=== PATIENT | female | born 1940 | race Caucasian/White ===

== ENCOUNTER 2019-06-04 04:41 | Inpatient (IN) | payer MEDICARE, BC ==
[~2019-06-04] VITALS: Ht 172.7 cm; Wt 81.8 kg
[2019-06-04 05:11] LABS: HEMATOCRIT 45.8 % (37.0-47.0); HEMOGLOBIN 14.9 g/dl (12.5-16.0); MEAN CELL VOLUME 86 fl (80.0-100.0); MEAN CORPUSCULAR HEMOGLOBIN 28 pg (27.0-31.0); MEAN CORPUSCULAR HGB CONC 33 g/dl (33.0-37.0); MEAN PLATELET VOLUME 10.5 fl (7.4-10.4); PLATELET COUNT 296 K/mm3 (130-400); RED BLOOD COUNT 5.35 M/mm3 (4.10-5.30); REDCELL DISTRIBUTION WIDTH-CV 14.6 % (11.5-14.5)
[2019-06-04 05:18] LABS: INR 1.2 (0.8-3.0); PROTHROMBIN TIME 14.6 SECONDS (9.7-12.8)
[2019-06-04 05:23] LABS: ALANINE AMINOTRANSFERASE < 6 U/L (9-52); ALBUMIN 4.1 gm/dL (3.5-5.0); ALKALINE PHOSPHATASE 121 U/L (50-136); ANION GAP 16 mmol/L (7-16); AST,SGOT 17 U/L (15-37); BILIRUBIN,TOTAL 1.1 mg/dL (0.0-1.0); BLOOD UREA NITROGEN 35 mg/dL (7-17); CALCIUM 9.7 mg/dL (8.4-10.2); CARBON DIOXIDE 29 mmol/L (22-30); CHLORIDE 90 mmol/L (98-107); CREATININE, serum 0.98 (0.52-1.25); GLUCOSE 167 mg/dL (74-106); LIPASE 110 U/L (23-300); POTASSIUM 3.4 mmol/L (3.4-5.0); SODIUM 135 mmol/L (137-145); TOTAL PROTEIN 7.9 gm/dL (6.4-8.2)
[2019-06-04 05:35] LABS: TROPONIN-I < 0.012 ng/mL (0.000-0.035)
[2019-06-04 05:37] LABS: BAND 44 % (0-10); LYMPHOCYTE 20 % (20.0-51.0); NEUTROPHILS 28 % (42.0-75.2)
[2019-06-04 08:05] LABS: COLLECTION METHOD CLEAN CATCH
[2019-06-04 08:22] LABS: MUCOUS Present /lpf; PH 5 (5-8); URINE APPEARANCE Clear; URINE BACTERIA None Seen /hpf; URINE BILIRUBIN Negative (NEGATIVE); URINE BLOOD Negative (NEGATIVE); URINE COLOR Yellow; URINE GLUCOSE Negative (NEGATIVE); URINE KETONE 2+ (NEGATIVE); URINE LEUKOCYTE ESTERASE Negative (NEGATIVE); URINE NITRATE Negative (NEGATIVE); URINE PROTEIN(semi-quant) 1+ (NEGATIVE); URINE UROBILINOGEN Negative (NEGATIVE)
[2019-06-04] MEDS ORDERED: XALATAN EYE DROPS OD (08:37)
[2019-06-04 13:10] VITALS: BP 113/63; PULSE 94
[2019-06-04 13:40] VITALS: BP 112/63; PULSE 94; TEMP 98.1
[2019-06-04 14:40] VITALS: BP 118/65; PULSE 94
[2019-06-04 15:40] VITALS: BP 111/68; PULSE 95
[2019-06-04 16:49] VITALS: BP 114/66; PULSE 94; TEMP 98.1
--- NOTE | 2019-06-04 20:00 | NUR ---
Report received. Assumed care for ambulatory analyst. A&Ox3-drowsy. Assessment complete. VS stable. Has tolerated a small amount of clear fluid. Lap sites m1-nabyaltg-F/D/I. IV to left forearm-NS@100ml/hr. Denies pain/shortness of breath/nausea. Plan of care discussed for this shift to include pain control. Verbalizes understanding. REBECCA drain with scant amount of serosanguineous drainage. Branch cath with dark yellow urine. Denies needs. Call light in reach/bed in low wheels locked. Will monitor.
--- NOTE | 2019-06-04 20:55 | NUR ---
C/O pain to abdomen described as a constant ache-rated 6/10 on pain scale. Also states she is nauseas. Morphine/Zofran per order. Will monitor.
[2019-06-04 21:33] VITALS: BP 136/64; PULSE 100; TEMP 97.7
[2019-06-05] VITALS (7 sets, daily range): BP systolic 128–140; BP diastolic 58–71; PULSE 83–103; TEMP 97.3–98.8
--- NOTE | 2019-06-05 04:00 | NUR ---
Called with c/o nausea. States her pain is well controlled but she feels a pressure/gas feeling. Did assist to side of bed to sit. Did stand for a few minutes but states she isnt ready to ambulate. REBECCA output for this shift 40mls. Denies needs. Will monitor.
[2019-06-05 08:04] LABS: HEMATOCRIT 39.9 % (37.0-47.0); MEAN CELL VOLUME 85 fl (80.0-100.0); MEAN CORPUSCULAR HEMOGLOBIN 28 pg (27.0-31.0); MEAN CORPUSCULAR HGB CONC 33 g/dl (33.0-37.0); MEAN PLATELET VOLUME 10.8 fl (7.4-10.4); PLATELET COUNT 272 K/mm3 (130-400); REDCELL DISTRIBUTION WIDTH-CV 14.9 % (11.5-14.5)
[2019-06-05 08:09] LABS: CALCIUM 8.3 mg/dL (8.4-10.2); CREATININE, serum 1.24 (0.52-1.25); MAGNESIUM 1.6 mg/dL (1.6-2.3); PHOSPHOROUS 3.9 mg/dL (2.5-4.5); POTASSIUM 3.6 mmol/L (3.4-5.0)
[2019-06-05 13:00] LABS: COLLECTION METHOD IN
--- NOTE | 2019-06-05 13:31 | NUR ---
plan: To return home with Crow as care support [phone]. Patient also listed her as her EMR and DPOA, although she indicated that she does not have it recorded. patient resides in [facility]. Assess: SW met with patient with her at her bedside. patient gave SW permission to discuss information in front of spouse. Patient reported that she did not utilize any DM equipment, and that her PCP is Dr. Enriquez. Patient reports that she has an upcoming appointment July 20, 2019. Patient reported that she gets her medications from [facility] in [facility] with no complications. Patient declined and [facility] at this time. Plan: Patient was educated about community resources. Possible discharge will be next week.
[2019-06-05 13:32] LABS: MUCOUS Present /lpf; PH 5 (5-8); SQUAMOUS EPITHELIAL None Seen /hpf; URINE APPEARANCE Hazy; URINE BACTERIA Rare /hpf; URINE BILIRUBIN Negative (NEGATIVE); URINE BLOOD 1+ (NEGATIVE); URINE COLOR Yellow; URINE GLUCOSE Negative (NEGATIVE); URINE KETONE Trace (NEGATIVE); URINE LEUKOCYTE ESTERASE Negative (NEGATIVE); URINE NITRATE Negative (NEGATIVE); URINE PROTEIN(semi-quant) 1+ (NEGATIVE); URINE UROBILINOGEN Negative (NEGATIVE)
[2019-06-05 15:06] LABS: HEMOGLOBIN 12.2 g/dl (12.5-16.0); MEAN CELL VOLUME 84 fl (80.0-100.0); MEAN CORPUSCULAR HEMOGLOBIN 28 pg (27.0-31.0); MEAN CORPUSCULAR HGB CONC 33 g/dl (33.0-37.0); MEAN PLATELET VOLUME 10.2 fl (7.4-10.4); PLATELET COUNT 236 K/mm3 (130-400); RED BLOOD COUNT 4.37 M/mm3 (4.10-5.30); REDCELL DISTRIBUTION WIDTH-CV 14.9 % (11.5-14.5)
[2019-06-05 15:09] LABS: HEMATOCRIT 36.6 % (37.0-47.0)
[2019-06-05 15:23] LABS: ALBUMIN 2.8 gm/dL (3.5-5.0); BILIRUBIN,TOTAL 0.6 mg/dL (0.0-1.0); CALCIUM 8.1 mg/dL (8.4-10.2); CREATININE, serum 1.19 (0.52-1.25); POTASSIUM 3.5 mmol/L (3.4-5.0); TOTAL PROTEIN 5.8 gm/dL (6.4-8.2)
--- NOTE | 2019-06-05 18:00 | NUR ---
Taking clear liquids slowly. No c/o nausea. Sat at side of bed several times, but stated did not feel ready to ambulate yet. Pain relieved with prn pain meds. Small amount serosanguinous drainage from REBECCA drain. IV fluids infusing. Afebrile. Lab results called to physician.
--- NOTE | 2019-06-05 20:53 | NUR ---
Pt doing well, resting in bed with son in room. Alert and oriented with VSS. Pt had lap lavage for diverticulitis. Abd lap sites x3 all CD&I. REBECCA drain to L side of abdomen, also CD&I. Minimal light yellow drainage. Pt denies pain at this time, states she is comfortable. Pt denies needs, call light within reach, will continue to monitor
--- NOTE | 2019-06-05 22:30 | NUR ---
Pt son comes out and reports pt is having some confusion. pt does not know what year it is or who is president. pt reoriented with this. pt does recall what happened before she came to hospital and that she had surgery. vital signs are stable. almost as if patient was dreaming and it affected memory short term. pt seems to be better now and recognized and son. will continue to monitor
[2019-06-06 04:09] VITALS: BP 138/61; PULSE 80; TEMP 98.7
--- NOTE | 2019-06-06 04:35 | NUR ---
Pt slept well rest of night, had no more episodes of confusion.
[2019-06-06 08:35] LABS: ALBUMIN 2.6 gm/dL (3.5-5.0); BILIRUBIN,TOTAL 0.5 mg/dL (0.0-1.0); CREATININE, serum 0.83 (0.52-1.25); POTASSIUM 3.6 mmol/L (3.4-5.0); TOTAL PROTEIN 5.5 gm/dL (6.4-8.2)
[2019-06-06 09:01] VITALS: BP 140/59; PULSE 78; TEMP 97.8
[2019-06-06 09:16] LABS: HEMOGLOBIN 10.9 g/dl (12.5-16.0); MEAN CELL VOLUME 85 fl (80.0-100.0); MEAN CORPUSCULAR HEMOGLOBIN 28 pg (27.0-31.0); MEAN CORPUSCULAR HGB CONC 33 g/dl (33.0-37.0); MEAN PLATELET VOLUME 10.4 fl (7.4-10.4); PLATELET COUNT 229 K/mm3 (130-400); RED BLOOD COUNT 3.93 M/mm3 (4.10-5.30)
[2019-06-06 09:21] LABS: HEMATOCRIT 33.5 % (37.0-47.0)
[2019-06-06 10:18] LABS: BAND 39 % (0-10); LYMPHOCYTE 6 % (20.0-51.0); NEUTROPHILS 51 % (42.0-75.2); PLATELET ESTIMATE NORMAL (NORMAL)
[2019-06-06 12:05] VITALS: BP 154/67; PULSE 73; TEMP 98.1
[2019-06-06 17:56] VITALS: BP 131/62; PULSE 67; TEMP 98.2
--- NOTE | 2019-06-06 18:30 | NUR ---
Alert. Afebrile. Incisional pain and nausea relieved with prn meds. Taking clear liquids slowly. Not passing flatus yet. Minimal output from REBECCA drain. Dangled and stood with assistance. Family at bedside.
[2019-06-06 20:02] VITALS: BP 124/56; PULSE 72; TEMP 98.7
--- NOTE | 2019-06-06 22:49 | NUR ---
Pt doing well. Alert and oriented with VSS. Resting in bed with son in room. Abd lap sites x3 CD&I with bandaid. IV to R forearm NS running. Pt denies needs at this time, call light within reach, will continue to monitor
[2019-06-06 23:26] VITALS: BP 141/66; PULSE 69; TEMP 98.1
[2019-06-07 03:39] VITALS: BP 134/61; PULSE 65; TEMP 97.9
--- NOTE | 2019-06-07 06:37 | NUR ---
PT has done well throughout the night. Has slept most of night with in room. x1 assist to bathroom. Zosyn running to IV in right forearm. Pt given prn norco per request. Pt denies needs at this time. Call light within reach, will continue to monitor
[2019-06-07 06:46] LABS: HEMOGLOBIN 10.9 g/dl (12.5-16.0); MEAN CELL VOLUME 86 fl (80.0-100.0); MEAN CORPUSCULAR HEMOGLOBIN 28 pg (27.0-31.0); MEAN CORPUSCULAR HGB CONC 32 g/dl (33.0-37.0); MEAN PLATELET VOLUME 10.2 fl (7.4-10.4); PLATELET COUNT 195 K/mm3 (130-400); RED BLOOD COUNT 3.94 M/mm3 (4.10-5.30); REDCELL DISTRIBUTION WIDTH-CV 15.2 % (11.5-14.5)
[2019-06-07 06:49] LABS: HEMATOCRIT 33.9 % (37.0-47.0)
[2019-06-07 06:58] LABS: ALBUMIN 2.6 gm/dL (3.5-5.0); BILIRUBIN,TOTAL 0.8 mg/dL (0.0-1.0); CREATININE, serum 0.61 (0.52-1.25); POTASSIUM 3.8 mmol/L (3.4-5.0); TOTAL PROTEIN 5.6 gm/dL (6.4-8.2)
[2019-06-07 07:56] LABS: ANISOCYTOSIS 1+; BAND 3 % (0-10); LYMPHOCYTE 13 % (20.0-51.0); NEUTROPHILS 82 % (42.0-75.2); PLATELET ESTIMATE NORMAL (NORMAL)
[2019-06-07 08:15] VITALS: BP 138/59; PULSE 71; TEMP 98.6
--- NOTE | 2019-06-07 08:45 | NUR ---
PATIENT SOUND ASLEEP, DID NOT WAKE WHEN NURSING ENTERED ROOM. CALL LIGHT IN REACH.
[2019-06-07 12:03] VITALS: BP 138/64; PULSE 72; TEMP 98
--- NOTE | 2019-06-07 13:06 | NUR ---
Pt slept throughout the morning. [place] was given for pain at 0816. Pt ambulated to bathroom and seems to have more strength compared to yesterday. Son at bedside.
--- NOTE | 2019-06-07 15:14 | NUR ---
Pt five page assessment done. Pt ambulated down the hallway well. Pt was given a bed bath and linens were changed at this time. Pt did have complaints of pain once she returned to her room. Pt was given pain medication at this time. Pt tolereated clear liquid diet well for lunch. Pt diet was changed and she tolerated pudding well. Pt was given chapstick for her dry lips and Desenex 2% Powder is currently was offered to patient she stated she would wait until a while and then we could help her apply. Pt family currently in the room at her bedside. Pt has no complaints at this time she is resting in bed. Bed is in lowest postion, call light within reach.
[2019-06-07 16:16] VITALS: BP 133/67; PULSE 64; TEMP 97.6
--- NOTE | 2019-06-07 17:24 | NUR ---
Pt currenty sitting up eating her low fiber meal tray. Ensure shake provided ecouraged pt to take slow. Pt was able to take a nap this afternoon.
[2019-06-07 19:50] VITALS: BP 130/59; PULSE 65; TEMP 98.1
--- NOTE | 2019-06-07 20:34 | NUR ---
PATIENT ASSISTED TO BATHROOM, VOIDS WITHOUT PROBLEM. EMPTIED 10CC FROM REBECCA DRAIN, SEROUS FLUID. HAS BANDAIDS TO ABDOMEN. REPORTS PAIN TO ABDOMEN 5/10, MEDICATED WITH NORCO AT THIS TIME. BACK TO BED. DESENEX POWDER APPLIED BENEATH BREASTS, NOTED SPLIT IN SKIN BENEATH BREASTS. IVF TO RIGHT FOREARM WITHOUT REDNESS OR SWELLING. SON AT BEDSIDE.
--- NOTE | 2019-06-07 23:27 | NUR ---
Patient complains of rt shoulder pain, warm blanket applied.
[2019-06-07 23:46] VITALS: BP 140/58; PULSE 70; TEMP 97.8
--- NOTE | 2019-06-08 00:06 | NUR ---
Reports pain 6/10 to rt shoulder and abdomen. Medicated with [place] 1 tab and IV Morphine at this time.
--- NOTE | 2019-06-08 01:35 | NUR ---
Assisted to bathroom, voids and back to bed. Reports less pain after meds were given.
[2019-06-08 03:50] VITALS: BP 139/55; PULSE 72; TEMP 97.8
--- NOTE | 2019-06-08 07:21 | NUR ---
Sitting up in bed eating breakfast. Lap sites x3 to abd with bandaid x2 and dressing CDI. REBECCA compressed with scant amount of serous fluid in bulb. Patient denies passing flatus at this time. Patient in agreeance in getting out of bed more today and walking in halls. Rates pain 4-5/10, in abd, and describes the pain as sharp with movement and deep pain with deep breathing. Requests pain medication. Administered [place] as prescribed at this time.
[2019-06-08 07:58] VITALS: BP 147/67; PULSE 76; TEMP 98.3
--- NOTE | 2019-06-08 08:40 | NUR ---
IV fluids discontinued at this time. Site INT'd. Discussed with the patient removing REBECCA drain and the procedure. Dressing removed from REBECCA site and bandaids also removed from two lap sites. Area around REBECCA drain insertion site cleaned with alcohol. Suture removed. Drain pulled, all intact. Applied 2x2s to site. Reinforced with tegaderm. Patient tolerates with little difficulty. Patient would like to rest for a little bit then will get up to ambulate. Denies further needs at this time.
--- NOTE | 2019-06-08 09:40 | NUR ---
Patient ambulating in halls with physical therapy at this time. Gait slow but steady. Using walker.
--- NOTE | 2019-06-08 09:53 | NUR ---
Offered shower or bed bath at this time and the patient declines. Cleansed under bilat breasts, dried, then applied Desenex powder. Patient says that she would like to rest at this time. Denies further needs.
[2019-06-08 12:06] VITALS: BP 150/62; PULSE 72; TEMP 98.3
--- NOTE | 2019-06-08 12:31 | NUR ---
Unable to flush IV in right forearm. Site dc'd with catheter intact. Applied 2x2 to site and reinforced with tape. #20 gauge IV started in the left forearm x1 stick by this nurse. Blood return received and site flushes without difficulty. Reinforced with tegaderm and tape. Patient tolerates without difficulty.
--- NOTE | 2019-06-08 13:03 | NUR ---
Patient rating pain 4/10 in abd. Says that she knows PT will be coming back to work with her this afternoon and requests to take pain medication at this time. [place] administered as prescribed. Patient says that she has been passing gas. Family in room. Denies further needs at this time.
--- NOTE | 2019-06-08 13:47 | NUR ---
Ambulating in halls with PT. Using walker. Gait slow and steady.
--- NOTE | 2019-06-08 14:04 | NUR ---
MINDI met with the patient and her to follow up and to review discharge plan. The patient is hopeful to start feeling better soon and return back home with her . They had no other questions or concerns for SW. No additional needs at this time.
[2019-06-08 16:46] VITALS: BP 146/60; PULSE 70; TEMP 97.8
[2019-06-08 20:00] VITALS: BP 147/59; PULSE 78; TEMP 98.4
[2019-06-09] VITALS (9 sets, daily range): BP systolic 147–169; BP diastolic 59–73; PULSE 73–92; TEMP 97.2–99
--- NOTE | 2019-06-09 05:55 | NUR ---
Patient blood pressure 168/68 Dr. Acosta notified, no new orders. Address during rounds.
[2019-06-09 06:58] LABS: HEMOGLOBIN 10.7 g/dl (12.5-16.0); MEAN CELL VOLUME 87 fl (80.0-100.0); MEAN CORPUSCULAR HEMOGLOBIN 28 pg (27.0-31.0); MEAN CORPUSCULAR HGB CONC 32 g/dl (33.0-37.0); MEAN PLATELET VOLUME 10.1 fl (7.4-10.4); PLATELET COUNT 218 K/mm3 (130-400); RED BLOOD COUNT 3.87 M/mm3 (4.10-5.30); REDCELL DISTRIBUTION WIDTH-CV 15.2 % (11.5-14.5)
[2019-06-09 07:11] LABS: HEMATOCRIT 33.5 % (37.0-47.0)
[2019-06-09 07:15] LABS: CALCIUM 7.9 mg/dL (8.4-10.2); CREATININE, serum 0.46 (0.52-1.25); POTASSIUM 3.6 mmol/L (3.4-5.0)
--- NOTE | 2019-06-09 07:30 | NUR ---
Assessment completed VSS nurse notified eleveate Blood Pressure 169/66. Pt siting up in bed tolerating low fiber breakfast. INT Left hand no redness or swelling. Breath sound WNL, Dressing to LLQ abdomen covered 2x2 no bleeding.
--- NOTE | 2019-06-09 10:46 | NUR ---
Pt currently sitting up in bed. diesel service technician stated that pt tolerated breakfast well. Pt had no complaints of pain at this time. Encouraged pt to ambulate as well as try to take a shower.Pt stated she was able to pass gas, no BM. Dr. Nguyen has rounded. Pt son is currently at bedside. Bed is in lowest positon and call light within reach.
--- NOTE | 2019-06-09 11:06 | NUR ---
Pt resting, VSS Pt son is at bedside. No pain noted at this time.
--- NOTE | 2019-06-09 15:36 | NUR ---
Pt was up out of bed and assisted her to the bathroom. She was able to have a large BM. Assested pt with shower and clean linen on bed. Pt ambulated with physical therapy pass the nutrition room. Pt is currently sleeping in bed with at bedside.
--- NOTE | 2019-06-09 20:38 | NUR ---
Pt doing well. alert and oriented with vss. int to right hand. on abx. ambulated in hallway about 150ft. pt denies needs at this time. call light within reach, will continue to monitor
[2019-06-10 04:01] VITALS: BP 163/70; PULSE 80; TEMP 98.8
--- NOTE | 2019-06-10 06:20 | NUR ---
pt doing well, walked a few times last night. still getting norco prn for abdominal pain. denies needs at this time. call light within reach, will continue to monitor
[2019-06-10 08:00] VITALS: BP 170/69; PULSE 84; TEMP 98.4
--- NOTE | 2019-06-10 08:56 | NUR ---
[facility] student Aleksandr caring for patient this morning. Student alerted this nurse that Pt BP elevated, not significant from previous BPs. Pt rating pain at 7/10 to abdomen, received [place] this morning at 0500, student administered tylenol PRN. Pt now sleeping comfortably in bed, will reassess pain and BP once awake.
[2019-06-10 12:52] VITALS: BP 146/63; PULSE 73; TEMP 97.8
--- NOTE | 2019-06-10 13:47 | NUR ---
Pt walked to end of tovar with assitance, tolerated well. States she would like to rest for a while, states he will walk with her again after rest, call light within reach, reported off to DOUGLAS Winston
[2019-06-10 15:50] VITALS: BP 158/69; PULSE 80; TEMP 98.1
--- NOTE | 2019-06-10 17:10 | NUR ---
Pt requested pain medication, rating abdominal pain 5/10 to rt sd. Pt has been up ambulating in halls 3 times so far today w/ therapy and . Pt tolerating ok. Pt received PRN [place] per JUN. Dinner served, per and pt, eating ok. Pt denies other needs at this time.
[2019-06-10 19:34] VITALS: BP 148/63; PULSE 69; TEMP 97.7
--- NOTE | 2019-06-10 20:00 | NUR ---
Report received. Assumed care for fairing man. Assessment complete. VS stable. A&Ox3. Family at bedside. Denies pain/nausea/shortness of breath. INT to left FA fulshes without difficulty. Tolerating PO. +flatus/+BM. Voiding without difficulty. Lap sites x3-edges well approximated. REBECCA drain site dressing-CDI/gauze/tegaderm. Has ambulated in the hallway approx 1000 feet. Denies questions or concerns. Call light in reach. Will monitor.
[2019-06-11] VITALS (7 sets, daily range): BP systolic 138–171; BP diastolic 54–72; PULSE 68–85; TEMP 97.8–98.4
--- NOTE | 2019-06-11 04:30 | NUR ---
Rested well beginning of shift. Called with c/o pain-rated 6/10 right quadrant-described as sharp/throbbing pain. Hydrocodone given per dr order. Ambulated well with walker last night. Son stated it was the longest walk since surgery, approx 1000ft. Tolerating diet. +flatus. +BMx2 this shift. Encouraged to call for questions/concerns. Verbalizes understanding. Will monitor.
--- NOTE | 2019-06-11 08:00 | NUR ---
Patient resting in bed at this time. Patient is alert and oriented, answers questions appropriately. Patient's at bedside. Patient reports pain at 6/10, requests pain medication. Student nurse and instructer administered pain medication. 3 lap sites and REBECCA drain site are well approximated with no drainage. Patient denies further needs, call light within reach.
--- NOTE | 2019-06-11 15:38 | NUR ---
The patient is to tentatively discharge back home with her tomorrow, 06/12. SW met with the patient and her to review discharge plan and to present and review the IM form. The patient plans to return home with her and had no questions for SW at this time. SW presented and reviewed the IM form. The patient verbalized understanding, signed, and she was provided a copy. No additional needs at this time.
--- NOTE | 2019-06-11 21:31 | NUR ---
Pt. sitting up in bed with at bedside. Pt. is A&OX3, assessment complete. INT to lt. forearm patent. Abd. incisions CDI. Pt. reports pain at a 5 on pain scale, gave pain meds per orders. Pt. denies further needs, call light within reach.
[2019-06-12 05:38] VITALS: BP 159/68; PULSE 79; TEMP 98.4
--- NOTE | 2019-06-12 08:00 | NUR ---
Patient resting in bed eating breakfast at this time. Patient is alert and oriented, answers questions appropriately. Patient requests PRN pain medication, informed patient that it was too soon, instructed patient to call for it in 1.5 hours if still needed. Patient verbalized understanding and denies further needs. Call light within reach.
[2019-06-12 08:17] VITALS: BP 155/56; PULSE 81; TEMP 97.9
[2019-06-12 09:03] LABS: MEAN CELL VOLUME 89 fl (80.0-100.0); MEAN CORPUSCULAR HGB CONC 31 g/dl (33.0-37.0); MEAN PLATELET VOLUME 10.3 fl (7.4-10.4); PLATELET COUNT 358 K/mm3 (130-400); REDCELL DISTRIBUTION WIDTH-CV 15.3 % (11.5-14.5)
[2019-06-12 09:07] LABS: HEMATOCRIT 31.1 % (37.0-47.0); HEMOGLOBIN 9.6 g/dl (12.5-16.0); MEAN CORPUSCULAR HEMOGLOBIN 27 pg (27.0-31.0)
[2019-06-12] MEDS ORDERED: AMOXICILLIN 8751 TAB PO (09:16)
[2019-06-12] MEDS ORDERED: NORCO 325 MG-51 TAB PO (09:16)
[2019-06-12 09:18] LABS: CALCIUM 7.9 mg/dL (8.4-10.2); CREATININE, serum 0.42 (0.52-1.25); POTASSIUM 3.4 mmol/L (3.4-5.0)
[2019-06-12 12:02] VITALS: BP 151/62; PULSE 74; TEMP 97.5
--- NOTE | 2019-06-12 12:37 | NUR ---
Discharge teaching completed. Discussed discharge prescriptions, follow up appointments, care of incisions, bathing and activity restrictions. Patient verbalized understanding. Patient requested PRN pain medication, administered per order. Patient states that she will take a nap before she leaves, and will inform staff when she is ready to leave. Denies further needs at this time, call light within reach.
--- NOTE | 2019-06-12 14:00 | NUR ---
Patient called and reports that she is ready to leave. INT removed, catheter intact, hemostasis achieved. Patient dressed and confirms that belongings are gathered. Patient escorted to ED entrance via wheelchair by surgical staff where she entered a private vehicle.
== END 2019-06-12 14:00 | disposition home or self-care (01) | DRG 345 ==
LOC: COL.ER 04:41 → SURG 06:57
PROVIDERS: Emergency Medicine; Surgery; ADMIT Surgery
PROC: 0W9F30Z Drainage of Abdominal Wall with Drainage Device, Percutaneous Approach (ICD-10-PCS; 2019-06-04)
PROC: 0DJD4ZZ Inspection of Lower Intestinal Tract, Percutaneous Endoscopic Approach (ICD-10-PCS; principal; 2019-06-04 09:30)
DX: K57.20 Diverticulitis of large intestine with perforation and abscess without bleeding (principal); R65.10 Systemic inflammatory response syndrome (SIRS) of non-infectious origin without acute organ dysfunction; K56.7 Ileus, unspecified; H40.9 Unspecified glaucoma; R06.6 Hiccough
CPT/HCPCS: A4314; A9284; C9113; J0692; J1100; J1650; J1885; J2270; J2405; J2543; J2704; J3010; J7030; J7120; Q9967

== ENCOUNTER 2023-10-26 12:13 | Inpatient (IN) | payer MEDICARE, BC ==
[~2023-10-26] VITALS: Ht 167.6 cm; Wt 79.0 kg
[~2023-10-26 12:13] MED LIST: AMOXICILLIN 8751 TAB PO; ASPI325T6 PO; CALTRATE-600 W600 MG PO; DOXYCYCLINE 10100 MG PO; LEVAQUIN 5500 MG/TA1 PO; MELATIN 3 MG-11 TAB PO; MULTI VITAMINS1 TAB PO; NORCO 325 MG-51 TAB PO; PRILOSEC 20MG20 MG PO; PRINIVIL10 MG PO; ROXICODONE 55 MG/TAB PO; TYLENOL 500MG500 MG PO; VITAMIN C500 MG PO; XALATAN EYE DROPS OD; XALATAN EYE DROPS OU
[2023-10-26 12:55] LABS: BASO # 0.1 K/mm3 (0.0-0.2); BASO % 0.6 % (0.0-2.0); EOS # 0.2 K/mm3 (0.0-0.7); EOS % 2.3 % (0.0-4.0); GRAN % 74.7 % (42.2-75.2); HEMOGLOBIN 11.6 g/dl (12.5-16.0); LYMPH % 11.1 % (20.0-51.0); MEAN CELL VOLUME 88 fl (80.0-100.0); MEAN CORPUSCULAR HEMOGLOBIN 28 pg (27-31); MEAN CORPUSCULAR HGB CONC 32 g/dl (33.0-37.0); MEAN PLATELET VOLUME 10.6 fl (7.4-10.4); MONO % 10.7 % (1.7-9.3); PLATELET COUNT 191 K/mm3 (130-400); RED BLOOD COUNT 4.18 M/mm3 (4.10-5.30); REDCELL DISTRIBUTION WIDTH-CV 14.9 % (11.5-14.5)
[2023-10-26 12:56] LABS: COLLECTION METHOD IN
[2023-10-26 12:57] LABS: HEMATOCRIT 36.6 % (37.0-47.0)
[2023-10-26 13:00] VITALS: BP_SYST 118
[2023-10-26] MEDS ORDERED: NS 500 ML IV ONE (13:00)
[2023-10-26 13:15] LABS: ALBUMIN 3.3 g/dL (3.4-4.8); BILIRUBIN,TOTAL 0.5 mg/dL (0.2-1.2); CALCIUM 9.1 mg/dL (8.4-10.2); CREATININE, serum 0.9 mg/dL (0.57-1.11); POTASSIUM 4.2 mEq/L (3.5-4.5); TOTAL PROTEIN 6.9 g/dl (6.2-8.1)
[2023-10-26 13:18] LABS: URINE APPEARANCE CLEAR (CLEAR/HAZY); URINE BLOOD TRACE (NEGATIVE); URINE COLOR YELLOW (YELLOW); URINE GLUCOSE NEGATIVE (NEGATIVE); URINE KETONE NEGATIVE (NEGATIVE); URINE NITRATE POSITIVE (NEGATIVE); URINE PROTEIN(semi-quant) NEGATIVE (NEGATIVE); URINE UROBILINOGEN 0.2 E.U/dL (0.2-1.0)
[2023-10-26] MEDS ORDERED: cefTRIAXone 1 G in Water For Injection,Sterile 10 ML IV ONE (13:45)
[2023-10-26] MEDS ORDERED: Doxycycline Monohydrate 100 MG CAP PO SCH (14:39)
[2023-10-26] MEDS ORDERED: Melatonin 3 MG TAB PO PRN (14:45)
[2023-10-26] MEDS ORDERED: Acetaminophen 500 MG TAB PO SCH (14:45)
[2023-10-26] MEDS ORDERED: oxyCODONE 5 MG TAB PO PRN (14:45)
[2023-10-26] MEDS ORDERED: Ondansetron 4 MG/2 ML VIAL IV PRN (14:45)
[2023-10-26] MEDS ORDERED: D5 1/2 NS 1,000 ML IV SCH (14:45)
[2023-10-26] MEDS ORDERED: cefTRIAXone 1 G in Water For Injection,Sterile 10 ML IV SCH (14:45)
[2023-10-26] MEDS ORDERED: Morphine 4 MG/ML VIAL IV PRN (14:45)
--- NOTE | 2023-10-26 14:45 | NUR ---
pt admitted to room from ED, slideboard used to transfer pt. at bedside. pt reports pain a 4/10 in her right hip. scds and teds in place. ice to right hip. leonard to dd w cloudy yellow urine output. pt on 2L nasal cannula. vss. 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 IV to left ac with fluids running. med rec and admission assessment complete. pt denies needs at this time. call light in reach.
[2023-10-26 15:20] VITALS: BP_SYST 118
[2023-10-26 15:23] VITALS: BP 131/75; PULSE 75; TEMP 98
[2023-10-26 19:30] VITALS: BP 137/70; PULSE 76; TEMP 97.6
[2023-10-26 19:40] VITALS: BP_SYST 137
[2023-10-26] MEDS ORDERED: Latanoprost 0.005% Ophth Soln 2.5 ML BOTTLE OP SCH (21:00)
--- NOTE | 2023-10-26 21:46 | NUR ---
Patient assessed around 194. Alert and oriented, and able to make needs known. Denied having pain and discomfort at that time. IV to left AC with IV fluids running per orders. Patient was on oxygen at 3 L/min via NC. SPO2 97%. Decreased to 2 L/min via NC. Denies SOB and dypsnea. LS CTA. HRR. Telemetry in place. BSAx4. Colostomy to LLE emptied, small amount of brown, soft formed stool. Indwelling leonard catheter with clear yellow urine. Patient is on bedrest for right hip fracture. Voices no questions, needs, or concerns at this time. Aware of plan to get cardiac clearance for surgery tomorrow. In bed with call light within reach. High fall risk precautions in place. Bed alarm on.
[2023-10-27] VITALS (19 sets, daily range): BP systolic 124–147; BP diastolic 48–76; PULSE 55–75; TEMP 97.3–100
--- NOTE | 2023-10-27 05:00 | NUR ---
Patient given scheduled Acetaminophen, and given PRN Roxicodone once this shift as requested for pain to right hip. Remains on bedrest. Patient has indwelling leonard catheter, draining clear yellow urine. IV fluids continue per orders. Voices no questions, needs, or concerns at this time. In bed with call light within reach. High fall risk precautions in place. Has been NPO since midnight.
--- NOTE | 2023-10-27 05:04 | NUR ---
Oxygen weaned down to 1 L/min via NC during the night.
[2023-10-27 05:39] LABS: INR 1.3 (0.8-3.0); PROTHROMBIN TIME 13.8 SECONDS (9.7-12.8)
--- NOTE | 2023-10-27 08:00 | NUR ---
pt a&oX4 resting comfortably in bed. pt reports pain a 2/10 in right hip. scds and teds in place. leonard to dd w cloudy yellow urine output. colostomy remains in place w good output. pt on 1L nasal cannula. vss and tele in place. pt npo for surgery today. fluids infusing into left ac IV. pt denies needs at this time. fall precautions in place. call light in reach.
[2023-10-27] MEDS ORDERED: Ascorbic Acid 500 MG TAB PO SCH (09:00)
[2023-10-27] MEDS ORDERED: cefTRIAXone 1 G in Water For Injection,Sterile 10 ML IV SCH (09:00)
[2023-10-27] MEDS ORDERED: Calcium Carb/Vit D3 500 mg-200 Units TAB PO SCH (09:00)
[2023-10-27] MEDS ORDERED: ASPIRIN 32325 MG/TAB PO (09:47)
--- NOTE | 2023-10-27 09:47 | NUR ---
Electrical Products Sales Engineer attempted to meet with patient to complete initial intake. Patient stated she is feeling tired and thirsty. Patient requested SW to come back later as she wants to rest right now. Patient told MINDI she could call her , Crow. MINDI contacted Crow (ph#[phone]) to discuss discharge planning. Patient and Crow live in [place] and patient recently switched primary care providers to Dr. Fan. Patient was seeing Dr. Mone Enriquez until she left her practice. Patient gets her medications from [facility] with no difficulties at this time. Patient has mostly been using a cane for ambulation and is independent with ADLS. Patient was raking leaves when she fell, resulting in a fracture. Patient has DPOA-HC in EMR designating her , Billy "Crow" Warren. MINDI advised Crow that patient will likely need post acute rehab. Crow advised patient went to [facility] previously and that would be their preference if rehab is needed. MINDI contacted Karmen, [facility] Director to give referral. Discharge Plan: [facility] Screen
[2023-10-27] MEDS ORDERED: Multivitamin TAB PO SCH (12:00)
--- NOTE | 2023-10-27 13:39 | NUR ---
pt off floor for procedure
[2023-10-27] MEDS ORDERED: dexAMETHasone 10 MG/ML VIAL ONE (13:43)
[2023-10-27] MEDS ORDERED: Ondansetron 4 MG/2 ML VIAL ONE (13:43)
[2023-10-27] MEDS ORDERED: NS 10 ML IV ONE (13:43)
[2023-10-27] MEDS ORDERED: Tranexamic Acid 1,000 MG/10 ML VIAL ONE (13:44)
[2023-10-27] MEDS ORDERED: ePHEDrine 50 MG/ML VIAL ONE (14:37)
[2023-10-27] MEDS ORDERED: Meperidine 50 MG/ML 1 ML VIAL IV PRN (15:00)
[2023-10-27] MEDS ORDERED: droPERidol 2.5 MG/ML 2 ML VIAL IV PRN (15:00)
[2023-10-27] MEDS ORDERED: HYDROmorphone 1 MG/1 ML SYRINGE [PACU/SDC ONLY] IV PRN ×2 (15:00)
[2023-10-27] MEDS ORDERED: fentaNYL 50 MCG/ML 1 ML SYRINGE/VIAL [PACU/SDC ONLY] IV PRN (15:00)
[2023-10-27] MEDS ORDERED: hydrALAZINE 20 MG/ML 1 ML VIAL IV PRN (15:00)
[2023-10-27] MEDS ORDERED: Ondansetron 4 MG/2 ML VIAL IV PRN (15:00)
[2023-10-27] MEDS ORDERED: Topical Skin Adhesive 1 EACH (1 ML) TOP ONE (15:17)
[2023-10-27] MEDS ORDERED: Promethazine 50 MG/ML 1 ML VIAL IM PRN (15:30)
[2023-10-27] MEDS ORDERED: Naloxone 0.4 MG/ML VIAL IV PRN (15:30)
[2023-10-27] MEDS ORDERED: Promethazine 25 MG TAB PO PRN (15:30)
[2023-10-27] MEDS ORDERED: dexAMETHasone 10 MG/ML VIAL IV SCH (16:00)
--- NOTE | 2023-10-27 16:25 | NUR ---
pt back in room from procedure, at bedside. pt rates pain a 3/10. dressing to right hip is cdi. call light in reach.
--- NOTE | 2023-10-27 21:23 | NUR ---
Patient assessed around 1999. Alert and oriented, and able to make needs known. Reports pain at a 5 to right hip. Given scheduled Acetaminophen. Peripheral IV to left AC with IV fluids running per orders. Denies SOB and dyspnea. LS CTA. On oxygen at 1 L/min via NC. HRR. BSAx4. Colostomy in place to LLQ. Indwelling leonard catheter draining clear yellow urine via dependent drainage. Dressing to right hip is CDI. Ice to site. Voices no questions, needs, or concerns at this time. In bed with call light within reach. High fall risk precautions in place. Bed alarm on.
[2023-10-28] VITALS (7 sets, daily range): BP systolic 119–140; BP diastolic 59–71; PULSE 58–68; TEMP 97.7–98
[2023-10-28] MEDS ORDERED: ceFAZolin 1 G in Water For Injection,Sterile 10 ML IV SCH (01:30)
--- NOTE | 2023-10-28 05:52 | NUR ---
Patient received scheduled Acetaminophen, as well as PRN Roxicodone for pain to right hip as requested. Ice to site. Voices no further questions, needs, or concerns at this time. In bed with call light within reach. High fall risk precautions in place. Bed alarm on.
[2023-10-28 06:41] LABS: HEMOGLOBIN 10.3 g/dl (12.5-16.0)
[2023-10-28 06:48] LABS: HEMATOCRIT 32.3 % (37.0-47.0)
--- NOTE | 2023-10-28 08:35 | NUR ---
pt a&ox4 resting in bed waiting for breakfast. vss. pt denies pain. right hip dressing is cdi, bulky dressing changed to an aquacell. teds and scds to ble. leonard to dd w clear yellow urine output. therapy in to work with patient. pt denies needs at this time. call light in reach. fall precautions in place.
--- NOTE | 2023-10-28 11:10 | NUR ---
line out worker was notified patient was accepted with [facility] and could transfer today. MINDI notified DENA Contreras, whom expressed she and Dr. Cintron would meet with her shortly to ensure she was medically ready for [facility]. MINDI met with patient whom confirmed she would like to go to [facility] when Dr. Cintron medically clears her. MINDI notified patient's nurse and community sports coordinator. MINDI Alfonso called patient's , Crow, whom expressed he was okay with patient transferring to [facility] when medically ready. Discharge plan: [facility]
[2023-10-28] MEDS ORDERED: ASPI325T6 PO (11:54)
[2023-10-28] MEDS ORDERED: ROXICODONE 55 MG/TAB PO (11:55)
[2023-10-28] MEDS ORDERED: TYLENOL 500MG500 MG PO (11:56)
[2023-10-28] MEDS ORDERED: DOXYCYCLINE 10100 MG PO (11:59)
[2023-10-28] MEDS ORDERED: ROCEPHIN VIA1 G/VIAL IV (11:59)
[2023-10-28 12:08] LABS: COLLECTION METHOD CLEAN CATCH
[2023-10-28 12:25] LABS: PH 5.5 (5.0-8.5); URINE APPEARANCE CLEAR (CLEAR/HAZY); URINE BLOOD NEGATIVE (NEGATIVE); URINE COLOR YELLOW (YELLOW); URINE GLUCOSE NEGATIVE (NEGATIVE); URINE KETONE NEGATIVE (NEGATIVE); URINE NITRATE NEGATIVE (NEGATIVE); URINE PROTEIN(semi-quant) NEGATIVE (NEGATIVE); URINE UROBILINOGEN 0.2 E.U/dL (0.2-1.0)
--- NOTE | 2023-10-28 13:50 | NUR ---
physical therapy in with pt, help assist patient over to rehab room. pt tolerated well. reports increased pain at a 4. at bedside with patient.
== END 2023-10-28 15:04 | DRG 522 ==
LOC: COL.ER 12:13 → SURG 14:01
PROVIDERS: Emergency Medicine; Orthopaedic Surgery; Physician Assistant; ADMIT Internal Medicine
PROC: 0SR90JZ Replacement of Right Hip Joint with Synthetic Substitute, Open Approach (ICD-10-PCS; principal; 2023-10-27 14:30)
DX: S72.001A Fracture of unspecified part of neck of right femur, initial encounter for closed fracture (principal); N39.0 Urinary tract infection, site not specified; R09.02 Hypoxemia; Z96.642 Presence of left artificial hip joint; H40.9 Unspecified glaucoma; D64.9 Anemia, unspecified; W01.0XXA Fall on same level from slipping, tripping and stumbling without subsequent striking against object, initial encounter; I10 Essential (primary) hypertension; Z79.899 Other long term (current) drug therapy; Y93.89 Activity, other specified; Y92.89 Other specified places as the place of occurrence of the external cause; Z23 Encounter for immunization
CPT/HCPCS: A6197; A9284; C1713; C1776; J0690; J0696; J1100; J2270; J2405; J2704; J3010; J7040

== ENCOUNTER 2023-10-28 13:41 | Inpatient (IN) | payer MEDICARE, BC ==
[~2023-10-28] VITALS: Ht 167.6 cm; Wt 96.4 kg
[2023-10-28 13:00] VITALS: BP_SYST 158
[~2023-10-28 13:41] MED LIST changes: +ASPIRIN 32325 MG/TAB PO; +ROCEPHIN VIA1 G/VIAL IV
[2023-10-28] MEDS ORDERED: Naloxone 0.4 MG/ML VIAL IV PRN (15:30)
[2023-10-28] MEDS ORDERED: oxyCODONE 5 MG TAB PO PRN (15:30)
[2023-10-28] MEDS ORDERED: Docusate Sodium 100 MG CAP PO PRN (15:30)
[2023-10-28] MEDS ORDERED: Acetaminophen 325 MG TAB PO PRN (15:30)
[2023-10-28] MEDS ORDERED: Polyethylene Glycol 3350 17 GM PDS PO PRN (15:30)
[2023-10-28] MEDS ORDERED: Sennosides/Docusate 8.6-50 MG TAB PO PRN (15:30)
[2023-10-28 15:35] VITALS: BP 158/71; PULSE 72; TEMP 97.8
[2023-10-28] MEDS ORDERED: Melatonin 3 MG TAB PO PRN (15:45)
[2023-10-28 16:36] VITALS: BP_SYST 158
[2023-10-28 20:36] VITALS: BP_SYST 158
[2023-10-28] MEDS ORDERED: Doxycycline Monohydrate 100 MG CAP PO SCH (21:00)
[2023-10-28] MEDS ORDERED: Latanoprost 0.005% Ophth Soln 2.5 ML BOTTLE OP SCH (21:00)
--- NOTE | 2023-10-28 22:48 | NUR ---
patient lying in bed, alert and oriented x4. denies chest pain and shortness of breath. reports pain in right hip and lower back rated 3/10, tylenol given per request. aquacell on right hip is CDI, colostomy in place, site CDI pt denies change or emptying at this time. leonard catheter in place draining to bag, pt request to leave over night and take out in morning. oral care performed independently. pt has no further needs questions or concerns at this time. fall precautions in place, call light within reach. will continue to monitor.
[2023-10-29 06:00] VITALS: BP 162/77; PULSE 64; TEMP 97.3
[2023-10-29 06:40] VITALS: BP_SYST 162
[2023-10-29] MEDS ORDERED: Omeprazole 20 MG **** subs to Pantoprazole 40 MG PO SCH (07:00)
--- NOTE | 2023-10-29 07:27 | NUR ---
Pt awake, sitting up in bed comfortably. Pt states she is having no pain. Pt states she is ready for breakfast to get here. Call light within reach. Bed alarm on. No concerns at this time.
[2023-10-29] MEDS ORDERED: Ascorbic Acid 500 MG TAB PO SCH (09:00)
[2023-10-29] MEDS ORDERED: Calcium Carb/Vit D3 500 mg-200 Units TAB PO SCH (09:00)
[2023-10-29] MEDS ORDERED: cefTRIAXone 1 G in Water For Injection,Sterile 10 ML IV SCH (09:00)
--- NOTE | 2023-10-29 09:34 | NUR ---
Pt awake, sitting up on side of bed for morning assessment/med pass. Pt complains of pain at this time 09/04, also in prep for PT/OT working with her. PRN Oxycodone given at this time. 22g IV inserted into R AC at this time for administration of IV abx. Pt colostomy clean, dry, intact at this time. Colostomy output minimal - pt stated "it was just emptied". No other concerns at this time. Bed alarm on. Call light within reach.
[2023-10-29] MEDS ORDERED: Multivitamin TAB PO SCH (12:00)
--- NOTE | 2023-10-29 15:55 | NUR ---
right of way worker and MINDI Student attended the [facility] team conference to discuss patient s progress and potential discharge date. Patient is new to the unit, so patient will be re-evaluated next week. SW and MINDI Student met with patient to discuss the [facility] team conference notes and provided a copy of patient s note. SW explained the team would like to re-evaluate her next week. Patient expressed understanding. SW completed initial assessment with patient. Patient lives in [place] with her , Crow, P# [phone]. PCP is Dr. Fan, Pharmacy is [facility]. No issues affording medications. Insurance is Medicare A and B, pharmacy is [facility]. DPOA-HC is Crow, DME is a cane. Patient reports that prior to hospitalization she was independent with ADLS. Patient s is able to transport her to and from appointments. Patient reports to have stairs to the basement, on her deck in the backyard and a few steps to get into the home. MINDI explained they would like to schedule a family meeting with patient and for Friday. Patient is okay with this meeting. MINDI contacted Crow, patient s , and scheduled family meeting for Friday at 10:30 am. MINDI notified staff and patient.
[2023-10-29 18:38] VITALS: BP 135/58; PULSE 60; TEMP 97.4
[2023-10-29 19:42] VITALS: BP_SYST 135
--- NOTE | 2023-10-29 22:44 | NUR ---
pt lying in bed, alert and oriented x4. denies chest pain and shortness of breath. IV in RAC is patent, site is CDI. colostomy CDI, right hip with aquacell CDI. pt has no further needs, questions, or concerns at this time. fallprecautions in place, call light within reach. will continue to monitor.
[2023-10-30 05:37] VITALS: BP 154/76; PULSE 59; TEMP 98
[2023-10-30 07:00] VITALS: BP_SYST 154
--- NOTE | 2023-10-30 08:30 | NUR ---
Patient sitting at the edge of the bed, asked for assistance to go to the restroom. Pt ambulates with walker. Complains of pain 7/10, PRN provided. Assessment completed, meds given. No other needs at this time. Call light within reacy.
[2023-10-30 18:52] VITALS: BP 114/68; PULSE 81; TEMP 98.2
--- NOTE | 2023-10-30 18:55 | NUR ---
RECEIVED CHANGE OF SHIFT REPORT FROM DAY SHIFT NURSE.
[2023-10-30 19:00] VITALS: BP_SYST 114
--- NOTE | 2023-10-31 01:39 | NUR ---
PATIENT EMPTIED OUT COLOSTOMY BAG WITH NO REPORTED/OBSERVED DIFFICULTIES. NO NEEDS REPORTED WHEN BACK TO BED. EXIT ALARM ON, CALL LIGHT WITHIN PATIENT'S REACH.
[2023-10-31 05:26] VITALS: BP 166/73; PULSE 65; TEMP 97.9
[2023-10-31 07:00] VITALS: BP_SYST 166
--- NOTE | 2023-10-31 07:06 | NUR ---
CHANGE OF SHIFT REPORT GIVEN TO DAY SHIFT NURSE, MARC. PATIENT UP WITH X1 STAFF ASST WITH GAIT BELT/WALKER WITH NO REPORTED PROBLEMS WITH AMBULATION. DENIED CHEST PAIN/SHORTNESS OF BREATH AT REST OR WITH EXERTION. DENIED NUMBNESS OR TINGLING TO EXTREMITIES. DUANE HOSE OFF AT NIGHT FOR SLEEP. RIGHT HIP AQUACELL DRESSING REMAINED CLEAN/DRY AND INTACT.
--- NOTE | 2023-10-31 08:00 | NUR ---
PATIENT A&O X4. VSS. C/O PAIN 08/05. PRN PAIN MEDICATION ADMINISTERED. SBA W/ WALKER. 100% BREAKFAST EATEN. REGULAR DIET. AQUACELL DRESSING DRY AND INTACT ON RIGHT HIP. 1+ PITTING EDEMA PRESENT IN RIGHT HIP. WORKING WITH OT AND PT TODAY.
--- NOTE | 2023-10-31 14:18 | NUR ---
Admission QIM scores were reviewed by the team. Code of 4 chosen for oral hygiene was determined by team discussion to be the most usual performance before interventions for this patient during the assessment period. Code of 4 chosen for sit to lying was determined by team discussion to be the most usual performance before interventions for this patient during the assessment period. Code of 4 chosen for lying to sitting side of bed was determined by team discussion to be the most usual performance before interventions for this patient during the assessment period.--Karmen Mota, PD
[2023-10-31 16:59] VITALS: BP 127/71; PULSE 62; TEMP 98.2
[2023-10-31 19:00] VITALS: BP_SYST 127
--- NOTE | 2023-10-31 21:00 | NUR ---
UPON SHIFT ASSESSMENT, PATIENT WAS AWAKE IN BED AND AXO X 4. MOST RECENT VS ARE WNL. RT HIP SURGICAL CDI WITH AQUACELL. DISTAL PULSES GOOD AND COLOR WNL. PATIENT C/O 7/10 PAIN TO RT HIP. PRN KAR ADMINISTERED. STATES NO THER NEEDS AT THIS TIME.
[2023-11-01 05:22] VITALS: BP 157/75; PULSE 66; TEMP 97.9
--- NOTE | 2023-11-01 05:22 | NUR ---
PATIENT HAD NO EMERGENT EVENTS AND RESTED THROUGHOUT THE NIGHT. SHE WAS ASSISSTED TO AMBULATE TO BATHROOM BY JANES COLE. NO COMPLICATIONS. RT HIP SURGICAL SITE REMAINS CDI.
[2023-11-01 06:30] VITALS: BP_SYST 157
--- NOTE | 2023-11-01 07:24 | NUR ---
PT LAYING IN BED UPON ENTERING. ASSESSMENT DONE, MEDS GIVEN PER ORDER. PRN KAR GIVEN. INT TO RIGHT AC PATENT, ANTIBIOTIC GIVEN PER ORDER. OSTOMY IN PLACE TO LEFT ABDOMEN, PT MANAGES INDEPENDENTLY. AQUACELL TO RIGHT HIP CLEAN DRY AND INTACT, NO DRAINAGE NOTED. PT DENIES NEEDS. BED IN LOWEST POSITION, CALL LIGHT IN REACH, BED ALARM ON.
[2023-11-01 16:42] VITALS: BP 131/77; PULSE 63; TEMP 98.1
[2023-11-01 19:00] VITALS: BP_SYST 131
--- NOTE | 2023-11-01 21:00 | NUR ---
UPON SHIFT ASSESSMENT, PATIENT WAS AXO X 4 SITTING IN BEDSIDE RECLINER. RT HIP INSCISION SITE CDI. PATIENT AMBULATED TO RESTROOM WITH GOOD EFFORT AND STEADY GAIT. VS ARE WNL AND DISTAL PULSES AND SKIN IS GOOD. PATIENT STATES RT HIP PAIN IS STARTING, " TO GET NAGGY." PRN KAR GIVEN. STATES NO OTHER NEEDS AT THIS TIME.
--- NOTE | 2023-11-02 | NUR ---
ASSISSTED PATIENT TO RESTROOM. GATE WAS STEADY WITH WALKER. PATIENT DENIES PAIN.
--- NOTE | 2023-11-02 03:28 | NUR ---
ROUNDED ON PATIENT. JAIME SLEEPING PEACEFULLY SUPINE. NO SIGNS OF DISTRESS. RR 16.
[2023-11-02 05:19] VITALS: BP 130/71; PULSE 70; TEMP 97.9
[2023-11-02 07:24] VITALS: BP_SYST 130
--- NOTE | 2023-11-02 07:28 | NUR ---
PT AMBULATED TO BATHROOM WITH WALKER STANDBY. PT BRUSHED HER TEETH INDEPENDENTLY AND BACK TO BED FOR BREAKFAST. PT DENIES PAIN CURRENTLY AND GIVEN PRN TYLENOL PER REQUEST. INT TO RIGHT AC PATENT. COLOSTOMY TO LEFT ABDOMEN THAT PT MANAGES, PRODUCING STOOL WITHOUT ISSUES. PT DENIES NEEDS. BED IN LOWEST POSITION, CALL LIGHT IN REACH, BED ALARM ON
[2023-11-02 16:42] VITALS: BP 130/77; PULSE 70; TEMP 98.1
[2023-11-02 18:50] VITALS: BP_SYST 130
--- NOTE | 2023-11-02 20:35 | NUR ---
Patient resting in chair working of word puzzles. Denies any pain at rest and stated she didn't even have pain when she took a walk earlier. Snack provided. Assessment complete. IV in right forearm flushes easily without complications. Call light and personal items in reach. Chair alarm in place.
--- NOTE | 2023-11-02 20:58 | NUR ---
Spoke with hospitalist Mary about patients IV site. Notified that she was recieving IV abx but that was discontinued on 10/31 and she is not getting anything else through the IV. Recieved orders to discontinue IV at this time. IV discontinued without complications. Catheter intact.
[2023-11-03 05:02] VITALS: BP 150/71; PULSE 58; TEMP 97.5
[2023-11-03 06:45] VITALS: BP_SYST 150
--- NOTE | 2023-11-03 07:29 | NUR ---
Report received. Pt is awake, sitting up in bed comfortably. Pt does not complain of pain at this time. No other concerns at this time. Bed alarm on. Call light within reach.
--- NOTE | 2023-11-03 09:29 | NUR ---
0832 - Pt is awake and alert, sitting up in chair at time of assessment and med pass. Pt does not complain of any pain at this time, stating, "I'm alright right now." No concerns at this time. Pt colostomy clean, dry, intact. Colostomy does not need to be emptied at this time. Chair alarm set. Call light within reach.
[2023-11-03 16:44] VITALS: BP 115/68; PULSE 59; TEMP 98.1
[2023-11-03 18:48] VITALS: BP_SYST 115
--- NOTE | 2023-11-03 20:45 | NUR ---
PT A&O X4 SITTING UP IN CHAIR READING. DENIES PAIN STATES HIP JUST FEELS SORE, ICEPACK IN PLACE & DENIES NEED FOR PAIN MEDS AT THIS TIME. HAI RASCONG TO RT HIP CDI. BLE TEDS ON. PT DENIES FURTHER NEEDS. CALL LIGHT IN REACH
--- NOTE | 2023-11-03 21:45 | NUR ---
PT AMBULATED TO BATHROOM & BACK TO BED WITH SBA. PT EMPTYING COLOSTOMY ON HER OWN. STATES PAIN IN HIP IS NOW 4/10, GAVE PRN TYLENOL & NEW ICEPACK. CALL LIGHT IN REACH & BED ALARM ON.
[2023-11-04 05:28] VITALS: BP 142/66; PULSE 65; TEMP 98.1
--- NOTE | 2023-11-04 05:46 | NUR ---
PT RESTING IN BED WITH UNLABORED RESP. CALL LIGHT IN REACH & BED ALARM ON
[2023-11-04 06:45] VITALS: BP_SYST 142
--- NOTE | 2023-11-04 07:17 | NUR ---
Pt awake, sitting up in bed. Pt states that she is having some soreness this morning, but can tolerate her pain level at this time - 06/07. No other concerns at this time. Bed alarm on. Call light within reach.
[2023-11-04] MEDS ORDERED: Lisinopril 10 MG TAB PO SCH (09:00)
--- NOTE | 2023-11-04 09:20 | NUR ---
0802 - Pt awake, sitting up in bed for morning assessment and med pass. Pt experiencing slight pain this morning, but requested to be pre-medicated for therapy. Medicated with PRN oxycodone. No other concerns at this time. Chair alarm set. Call light within reach.
[2023-11-04 18:01] VITALS: BP 126/69; PULSE 66; TEMP 98.6
[2023-11-04 18:48] VITALS: BP_SYST 126
--- NOTE | 2023-11-04 20:45 | NUR ---
PT A&O X4 SITTING UP IN CHAIR. SHIFT ASSESSMENT COMPLETE & HS MEDS GIVEN. PT REPORTING RT HIP PAIN 08/05, GAVE PRN TYLENOL PER JUN & ICEPACK. DRSG TO RT HIP CDI. PT DENYING FURTHER NEEDS. CALL LIGHT IN REACH & CHAIR ALARM ON
[2023-11-05 05:28] VITALS: BP 130/68; PULSE 61; TEMP 97.8
--- NOTE | 2023-11-05 05:30 | NUR ---
PT RESTING IN BED W/ UNLABORED RESP. PT REPORTED HAVING AN INCREASE IN PAIN THROUGHOUT THE NIGHT, PAIN CONTROLLED WITH PRN OXYCODONE & TYLENOL. DENIES FURTHER NEEDS THIS MORNING. CALL LIGHT IN REACH & BED ALARM ON
[2023-11-05 06:56] VITALS: BP_SYST 130
--- NOTE | 2023-11-05 08:15 | NUR ---
Pt doing well this morning, minimal complaints of pain. Did take pain medication prior to therapy starting. Pt does well getting up, standby assist. Assisted pt to the restroom where she emptied ostomy, assisted when necessary. No other needs at this time, call light within reach
--- NOTE | 2023-11-05 10:24 | NUR ---
Dressing to pts right hip was removed per ortho recommendations. Incision is well approximated, no redness or drainage noted. Tiny area open to the distal end of the incision. Airstrip applied to incision for pt comfort. Pt continues to sit up in the chair, no needs at this time
--- NOTE | 2023-11-05 13:20 | NUR ---
galley worker attended the IPR team conference to discuss patient's progress and discharge plan. Patient has improved a lot and would be ready for discharge on Friday. Patient has expressed that she would like to have outpatient PT so she can leave her home to go to the appointment. MINDI and MINDI student attended the family meeting with patient and patient's . Patient and are agreeable with discharge plan for Friday with outpatient PT. SW provided options for outpatient PT in the [facility] and they are going to review and will get back with the social media executive about their choice of agency. MINID and MINDI Student met with patient and reviewed the IPR team conference notes. MINDI provided a copy of these notes to patient. No questions or concerns at this time. Discharge plan: Home with OP PT
--- NOTE | 2023-11-05 15:00 | NUR ---
Pt has done well today with minimal pain complaints. She gets up with standby assist using a walker. She continues to empty ostomy independently. No needs at this time, call light within reach. Pt resting in bed
[2023-11-05 18:27] VITALS: BP 123/75; PULSE 83; TEMP 98.7
--- NOTE | 2023-11-05 21:00 | NUR ---
PT A&O X4 SITTING UP IN CHAIR. PT AMBULATING AROUND ROOM WITH SBA. DENIES PAIN STATES HER HIP JUST FEELS SORE, ICE PACK TO RT HIP. BLE TEDS ON. PT DENYING FURTHER NEEDS. CALL LIGHT IN REACH
--- NOTE | 2023-11-06 05:54 | NUR ---
PT RESTING IN BED WITH UNLABORED RESP. CALL LIGHT IN REACH & BED ALARM ON
[2023-11-06 05:57] VITALS: BP 153/76; PULSE 69; TEMP 98.2
[2023-11-06 07:00] VITALS: BP_SYST 153
--- NOTE | 2023-11-06 07:00 | NUR ---
pt a&ox4 finishing up in bathroom, pt provided colostomy care by herself w medium soft stool noted. pt reports pain in right knee, oxicodone given per emar. airstrip to right hip is cdi. teds to ble. assisted pt to bed for morning meds and breakfast, gait steady with walker. pt denies needs at this time. call light in reach. fall precautions in place.
--- NOTE | 2023-11-06 07:30 | NUR ---
A&O X4. VSS. C/O PAIN AT 8/10 SO PRN PAIN MEDICATIONS ADMINISTERED. NO C/O N/V. ASSIST X1 WITH WALKER. PERFORMS COLOSTOMY CARES INDEPENDENTLY. TOLERATES GENERAL DIET WELL. AIRSTRIP ON R HIP INCISION IS CLEAN, DRY, AND INTACT. NO OTHER SKIN ISSUES FOUND. WEARS THIGH HIGH TEDS. PLANS TO DC HOME TOMORROW.
--- NOTE | 2023-11-06 13:54 | NUR ---
The Interdisciplinary team discussed making the patient Independent in her room during Huddle. Her current Lang Fall Score is high at 50 as nursing documented pt has a weak gait but in conversation feel this is inaccurate. Her Tinetti score was moderate at 20. She is currently using a walker w/ wheels for mobility & self care & demonstrates good safety awareness. The team feels she is capable of being modified Independent in her room at this time as she is aware of her deficits/limitations & cognitively able to problem solve her situations.--Karmen Mota, PD
--- NOTE | 2023-11-06 14:30 | NUR ---
REPLACED COLOSTOMY BAD AND WAFER. PATIENT TOLERATED WELL.
--- NOTE | 2023-11-06 15:31 | NUR ---
Social work student met with patient to determine choice for outpatient PT agency. Patient decided [facility]. MINDI studentfaxed referral to [facility]. Discharge plan: home with OP PT
[2023-11-06 18:10] VITALS: BP 116/70; PULSE 69; TEMP 98.3
--- NOTE | 2023-11-06 19:19 | NUR ---
RECEIVED CHANGE OF SHIFT REPORT FROM DAY SHIFT NURSES. PATIENT UP IN CHAIR, CALL LIGHT WITHIN PATIENT'S REACH. PATIENT UP IN ROOM INDEPENDENTLY WITH NO REPORTED NEEDS OR COMPLAINTS AT TIME OF REPORT.
[2023-11-06 19:22] VITALS: BP_SYST 116
--- NOTE | 2023-11-06 20:00 | NUR ---
PATIENT UP INDEPENDENTLY WITH NO REPORTED CONCERNS OR QUESTIONS VOICED TO STAFF. DENIES ANY DISCOMFORT AT THIS TIME. UP IN CHAIR WITH CALL LIGHT IN REACH. PATIENT REPORTS THAT HER SPOUSE WILL BE COMING UP THIS EVENING BEFORE BEDTIME.
[2023-11-07 05:34] VITALS: BP 124/74; PULSE 68; TEMP 97.9
--- NOTE | 2023-11-07 05:50 | NUR ---
Patient called for staff assist to watch patient go to/from bathroom due to feeling "groggy". Speech clear and appropriate, gait slow but steady. Denied chest pain/shortness of breath/nausea when awake during the night.
--- NOTE | 2023-11-07 07:20 | NUR ---
CHANGE OF SHIFT REPORT GIVEN TO DAY SHIFT NURSEMARC.
--- NOTE | 2023-11-07 08:00 | NUR ---
PATIENT IS A&O AND EXCITED ABOUT DISCHARGING HOME TODAY. VSS. REPORTS PAIN IN RLE AT 3-4 ON PAIN SCALE WITH [facility] AND IS REQUESTING SOMETHING FOR PAIN BEFORE DISCHARGE, GAVE WITH AM MEDS. RIGHT HIP DSG IS CD&I. TEDS TO BLE. SCD'S CURRENTLY OFF. PATIENT UP IN BEDSIDE CHAIR WITH BREAKFAST TRAY. HEAD TO TOE ASSESSMENT COMPLETE. NO OTHER NEEDS AT THIS TIME. CALL LIGHT IN REACH.
[2023-11-07] MEDS ORDERED: ZESTRIL 10MG10 MG PO (09:25)
[2023-11-07] MEDS ORDERED: ROXICODONE 55 MG/TAB PO (09:26)
[2023-11-07] MEDS ORDERED: MULTI VITAMINS1 TAB PO (09:26)
[2023-11-07] MEDS ORDERED: VITAMIN C500 MG PO (09:26)
--- NOTE | 2023-11-07 11:40 | NUR ---
WENT OVER DISCHARGE INSTRUCTIONS WITH PATIENT & , E-SCRIPTS SENT, AND DISCUSSED F/U APTS. ANSWERED QUESTIONS/CONCERNS. NO IV SITE. PATIENT IS DRESSED, PACKED AND TAKING BELONGINGS TO VEHICLE. PATIENT WANTS TO STAY AND HAVE LUNCH AND WILL CALL WHEN SHES READY TO BE DISCHARGED.
--- NOTE | 2023-11-07 12:19 | NUR ---
hop worker met with patient to review the important message from [employer]. Patient understood, signed the form. MINDI made copy, placed original in chart, provided copy to patient. MINDI explained [facility] will be contacting her to schedule her first appointment for OP PT. MINDI faxed discharge orders to [facility]. Discharge plan: Home with OP PT
--- NOTE | 2023-11-07 13:05 | NUR ---
MINDI contacted [facility] and confirmed they received the discharge orders and will be calling the family to schedule the first appointment. Discharge plan: Home with OP PT- [facility]
--- NOTE | 2023-11-10 13:10 | NUR ---
Discharge QIM scores were reviewed by the team. Code of 6 chosen for toilet transfers was determined by team discussion to be the most usual performance for this patient during the discharge assessment period. Code of 6 chosen for putting on/taking off footwear was determined by team discussion to be the most usual performance for this patient during the discharge assessment period. Code of 6 chosen for sit to stand was determined by team discussion to be the most usual performance for this patient during the discharge assessment period. Code of 6 chosen for chair to bed was determined by team discussion to be the most usual performance for this patient during the discharge assessment period. Code of 6 chosen for walking 10 feet was determined by team discussion to be the most usual performance for this patient during the discharge assessment period. Code of 6 chosen for walking 50 feet w/ 2 turns was determined by team discussion to be the most usual performance before interventions for this patient during the discharge assessment period. Code of 6 chosen for 4 steps was determined by team discussion to be the most usual performance for this patient during the discharge assessment period.--Karmen Mota, PD
== END 2023-11-07 12:35 | disposition home or self-care (01) | DRG 560 ==
PROVIDERS: ADMIT Physical Medicine & Rehabilitation Sports Medicine
DX: S72.001D Fracture of unspecified part of neck of right femur, subsequent encounter for closed fracture with routine healing (principal); N39.0 Urinary tract infection, site not specified; W01.0XXD Fall on same level from slipping, tripping and stumbling without subsequent striking against object, subsequent encounter; B95.62 Methicillin resistant Staphylococcus aureus infection as the cause of diseases classified elsewhere; R94.31 Abnormal electrocardiogram [ECG] [EKG]; D64.9 Anemia, unspecified; Z93.3 Colostomy status; I10 Essential (primary) hypertension; K59.00 Constipation, unspecified; M17.11 Unilateral primary osteoarthritis, right knee; R26.89 Other abnormalities of gait and mobility; Z79.899 Other long term (current) drug therapy; Z79.891 Long term (current) use of opiate analgesic; Z79.82 Long term (current) use of aspirin; Z79.2 Long term (current) use of antibiotics; Z74.09 Other reduced mobility
CPT/HCPCS: J0696